=== PATIENT | female | born 1980 | race Caucasian/White ===

== ENCOUNTER 2017-03-01 12:14 | Emergency (ER) | payer MEDICAID ==
[~2017-03-01] VITALS: Ht 185.4 cm; Wt 125.2 kg
[2017-03-01] MEDS ORDERED: SODIUM CHLORIDE 0.9% 1,000 ML IV ONE (14:24)
[2017-03-01] MEDS ORDERED: ONDANSETRON 2MG/ML, 2ML IVPush ONE (14:30)
[2017-03-01] MEDS ORDERED: HYDROmorphone 1 MG/ML, 1ML IVPush PRN (14:30)
[2017-03-01] MEDS ORDERED: SODIUM CHLORIDE 0.9% 1,000ML IVBOLUS ONE (14:30)
[2017-03-01] MEDS ORDERED: SODIUM CHLORIDE FLUSH 10ML SYR IVF ONE (14:30)
[2017-03-01] MEDS ORDERED: HYDROmorphone 1 MG/ML, 1ML ONE (14:49)
[2017-03-01] MEDS ORDERED: ONDANSETRON 2MG/ML, 2ML ONE (14:49)
[2017-03-01 15:01] LABS: BLOOD UREA NITROGEN 14 mg/dL (7-18)
[2017-03-01 17:58] VITALS: BP 141/93
== END 2017-03-01 18:00 | disposition home or self-care (01) ==
LOC: ED 17:28
DX: N83.209 Unspecified ovarian cyst, unspecified side (principal); N93.8 Other specified abnormal uterine and vaginal bleeding; R10.2 Pelvic and perineal pain; I10 Essential (primary) hypertension
CPT/HCPCS: 36415; 76830; 80048; 81001; 82040; 84703; 85025; 96361; 96374; 96375; 99285; J1170; J2405; J7030

== ENCOUNTER 2017-10-04 08:12 | Observation (INO) | payer SELFPAY ==
[~2017-10-04] VITALS: Ht 182.9 cm; Wt 127.0 kg
[2017-10-04] MEDS ORDERED: SODIUM CHLORIDE 0.9% 1,000 ML IV ONE (08:27)
[2017-10-04] MEDS ORDERED: SODIUM CHLORIDE 0.9% 1,000ML IVBOLUS ONE (08:30)
[2017-10-04] MEDS ORDERED: ONDANSETRON 2MG/ML, 2ML IVPush ONE (08:30)
[2017-10-04] MEDS ORDERED: morphine SULFATE 10 MG/ML, 1ML ONE ×3 (08:49→20:48)
[2017-10-04] MEDS ORDERED: ONDANSETRON 2MG/ML, 2ML ONE ×3 (08:49→14:31)
[2017-10-04] MEDS: MORPHINE SULFATE 4 MG/ML, 1ML IVPush PRN ×5 (08:53→20:51)
[2017-10-04 09:01] LABS: HEMATOCRIT 44.8 % (34.6-47.8); HEMOGLOBIN 15.2 g/dL (11.7-16.4); WHITE BLOOD COUNT 6.8 x10^3/uL (3.4-10)
[2017-10-04 09:13] LABS: ASPARTATE AMINO TRANSFERASE 34 U/L (15-37); BLOOD UREA NITROGEN 9 mg/dL (7-18)
[2017-10-04] MEDS ORDERED: EPINEPHRINE 1 MG/ML, 1ML ONE (12:32)
[2017-10-04] MEDS ORDERED: BUPIVACAINE/PF 0.5% ONE (12:32)
[2017-10-04] MEDS ORDERED: FENTANYL PF 250 MCG/5ML ONE (12:43)
[2017-10-04] MEDS ORDERED: DEXAMETHASONE 4 MG/ML, 1ML ONE ×3 (12:47)
[2017-10-04] MEDS ORDERED: PROPOFOL 10 MG/ML, 20ML ONE ×2 (12:47)
[2017-10-04] MEDS ORDERED: ROCURONIUM 10 MG/ML ONE (12:48)
[2017-10-04] MEDS ORDERED: MIDAZOLAM 1 MG/ML, 2ML ONE (13:23)
[2017-10-04] MEDS ORDERED: OXYcodone 5 MG/5 ML ORAL.SOL UDC PO PRN (13:30)
[2017-10-04] MEDS ORDERED: ONDANSETRON 2MG/ML, 2ML IVPush PRN ×2 (13:30→18:00)
[2017-10-04] MEDS ORDERED: LABETALOL 5MG/ML, 20ML IV PRN (13:30)
[2017-10-04] MEDS ORDERED: PROMETHAZINE 25 MG/ML, 1ML ONE (14:31)
[2017-10-04] MEDS ORDERED: FENTANYL PF 100 MCG/2ML ONE (14:40)
[2017-10-04] MEDS: FENTANYL PF 100 MCG/2ML IV PRN ×2 (14:45→14:50)
[2017-10-04] MEDS ORDERED: HYDROmorphone 1 MG/ML, 1ML ONE (14:51)
[2017-10-04] MEDS: HYDROmorphone 1 MG/ML, 1ML IV PRN ×2 (15:00→15:05)
[2017-10-04] MEDS ORDERED: OXYcodone 5 MG/5 ML ORAL.SOL UDC ONE (15:21)
[2017-10-04 16:00] VITALS: BP 129/87
[2017-10-04] MEDS ORDERED: CEFAZOLIN 1,000 MG ONE (16:19)
[2017-10-04] MEDS ORDERED: GLYCOPYRROLATE 0.2MG/1ML, 5ML ONE (16:19)
[2017-10-04] MEDS ORDERED: KETOROLAC 30 MG/1 ML ONE (16:19)
[2017-10-04] MEDS ORDERED: NEOSTIGMINE 1 MG/ML, 10ML ONE (16:19)
[2017-10-04] MEDS ORDERED: DIPHENHYDRAMINE 50 MG/ML, 1ML IVPush PRN (18:00)
[2017-10-04 19:02] VITALS: BP 138/87
[2017-10-04] MEDS: OXYcodone/APAP 5/325MG TABLET PO PRN ×2 (19:17→23:45)
[2017-10-04] MEDS ORDERED: ENOXAPARIN 40 MG/0.4 ML SQ SCH (20:00)
[2017-10-04] MEDS: D5%-0.45NACL+KCL 20MEQ 1,000 ML IV SCH (20:00)
[2017-10-05 00:01] VITALS: BP 106/56
[2017-10-05 03:20] VITALS: BP 114/74
[2017-10-05] MEDS: OXYcodone/APAP 5/325MG TABLET PO PRN ×3 (03:46→13:23)
[2017-10-05] MEDS: D5%-0.45NACL+KCL 20MEQ 1,000 ML IV SCH ×2 (04:00→11:38)
[2017-10-05 07:05] VITALS: BP 106/66
[2017-10-05] MEDS: MORPHINE SULFATE 4 MG/ML, 1ML IVPush PRN (09:03)
[2017-10-05 12:35] VITALS: BP 110/64
[2017-10-05] MEDS ORDERED: OXYC-302 PO (15:19)
[2017-10-05] MEDS ORDERED: IBUP-1223 PO (15:20)
== END 2017-10-05 15:29 | disposition home or self-care (01) ==
LOC: ED 10:09 → INTOOBSV 12:03 → EDIP 12:03 → 4NOR 15:51
PROVIDERS: ADMIT Surgery; ATTEND Surgery
DX: K80.01 Calculus of gallbladder with acute cholecystitis with obstruction (principal); K82.8 Other specified diseases of gallbladder; K76.0 Fatty (change of) liver, not elsewhere classified; E66.9 Obesity, unspecified; I10 Essential (primary) hypertension; F17.200 Nicotine dependence, unspecified, uncomplicated
CPT/HCPCS: 36415; 47562; 76700; 80053; 81003; 83690; 84703; 85025; 88304; 96372; 96374; 96375; 96376; 99285; C1729; G0378; J0171; J0690; J1100; J1170; J1200; J1650; J1885; J2250; J2405; J2704; J2710; J3010; J3490; J7030; 96361

== ENCOUNTER 2020-03-27 22:58 | Emergency (ER) | payer SELFPAY ==
[~2020-03-27 22:58] MED LIST: IBUP-1223 PO; OXYC-302 PO
== END 2020-03-27 23:51 | disposition home or self-care (01) ==
LOC: ED 23:00
DX: Z02.9 Encounter for administrative examinations, unspecified (principal)